=== PATIENT | male | born 1995 | race Caucasian/White ===

== ENCOUNTER 2017-06-13 21:19 | Emergency (ER) | payer OTHER ==
[~2017-06-13] VITALS: Ht 182.9 cm; Wt 85.0 kg
[2017-06-13 21:20] VITALS: BP 133/81; PULSE 79; RESP 16; TEMP 98; O2SAT 99
[2017-06-13] MEDS ORDERED: LISD1CAP PO (23:03)
[2017-06-13] MEDS ORDERED: CEPH-460 PO (23:18)
--- NOTE | 2017-06-13 23:24 | PD ---
HPI Chief Complaint: Facial Pain or Swelling Time Seen by Provider: 23:08 Travel History International Travel<30 days: No Contact w/Intl Traveler<30days: No Traveled to known affect area: No History of Present Illness HPI 21-year-old white male presents to emergency department for evaluation of a facial trauma. The patient states that he was playing flag football and accidentally was struck in the face by another player's head. He had immediate epistaxis. He noticed a small cut on his nose and swelling. He complains of mild pain. He denies syncope. No neck or back pain. No numbness, tingling or weakness. No dental injury. No nausea vomiting. PFSH Past Medical History ADHD: Yes Diminished Hearing: No Immunizations Current: Yes Tetanus Vaccination: < 5 Years Past Surgical History Surgical History: No Previous Surgery Social History Alcohol Use: Yes (ONCE PER WEEK) Tobacco Use: No Substance Use: No Allergies-Medications (Allergen,Severity, Reaction): Coded Allergies: No Known Allergies (Verified Allergy, Unknown, 06/13/17) Reported Meds & Prescriptions Reported Meds & Active Scripts Active Keflex (Cephalexin) 500 Mg Capsule 500 Mg PO Q6H 7 Days Reported Vyvanse (Lisdexamfetamine Dimesylate) 10 Mg Cap 10 Mg PO DAILY PRN Review of Systems Except as stated in HPI: all other systems reviewed are Neg Physical Exam Narrative GENERAL: Well-developed, well-nourished in no acute distress. Nontoxic appearing. HEAD: Patient has mild tenderness and swelling to the bridge of the nose. There is a small 3 mm laceration on the right proximal nasal bridge. EYES: Pupils equal round and reactive. Extraocular motions intact. No scleral icterus. No injection or drainage. ENT: TMs clear without erythema. The external auditory canals clear. Nose: Patient has dry blood in both nares. No septal hematoma. The patient actually has septal deviation to the right. This is to the side of his trauma. I suspect that this is chronic because it is to the opposite side one would expect if it was related to trauma.. Posterior pharynx is pink and moist. No tonsillar edema or exudate. Uvula midline. Airway patent. NECK: Trachea midline.Supple, nontender, moves head freely. No central bony tenderness or spasm. CARDIOVASCULAR: Regular rate and rhythm without murmurs, gallops, or rubs. RESPIRATORY: Clear to auscultation. Breath sounds equal bilaterally. No wheezes , rales, or rhonchi. GASTROINTESTINAL: Abdomen soft, non-tender, nondistended. No hepato-splenomegaly , or palpable masses. No guarding. EXTREMITIES: No clubbing, cyanosis, or edema. No joint tenderness, effusion, or edema noted. BACK: Nontender without deformity or crepitance. No flank tenderness. Data Data Last Documented VS Vital Signs Date Time Temp Pulse Resp B/P (MAP) Pulse Ox O2 Delivery O2 Flow Rate FiO2 06/13/17 21:20 98.0 79 16 133/81 (98) 99 Room Air Orders Orders Cephalexin (Keflex) (06/13/17 23:30) MDM Medical Decision Making Medical Screen Exam Complete: Yes Emergency Medical Condition: Yes Medical Record Reviewed: Yes Differential Diagnosis MDM: High Differential diagnoses: Fracture, sprain, strain, dislocation, contusion, neurovascular injury Narrative Course Patient is given Keflex 500 mg by mouth. The wound is cleansed and dressed. Ice pack applied. I have discussed the clinical findings with the patient. He is aware that his exam is consistent with a fracture. We have decided not to perform x-rays at this point. This is nasal fracture. Diagnosis Primary Impression: Nasal fracture Qualified Codes: S02.2XXB - Fracture of nasal bones, initial encounter for open fracture Patient Instructions: General Instructions Departure Forms: School Release, Please excuse from school until (free text option): No Lacrosse or physical activities for one week. Tests/Procedures Additional Instructions: Rest. Daily wound care with soap, water, Neosporin. Ice packs. No nose blowing. Afrin or Vladimir-Synephrine for the next 3 days. Tylenol or Advil for pain. Keflex. Recheck with the clinic at school in one week. If you're unhappy with the results after the swelling resolves consider following up with a plastic surgeon or a ENT. Return to the ER if any problems. Med/Other Pt SpecificInfo: Prescription(s) given, Wound Care Scripts Cephalexin (Keflex) 500 Mg Capsule 500 MG PO Q6H for Infection for 7 Days, #28 CAP 0 Refills Prov: Paul Welch MD 06/13/17 Disposition: 01 DISCHARGE HOME Condition: Stable [place] PA Jun 13, 2017 23:24
[2017-06-13] MEDS ORDERED: CEPHALEXIN MONOHYDRATE 500 MG CAP PO ONE (23:30)
== END 2017-06-13 23:43 | disposition home or self-care (01) ==
LOC: NEPD 21:19
DX: S02.2XXA Fracture of nasal bones, initial encounter for closed fracture (principal); R04.0 Epistaxis; W50.0XXA Accidental hit or strike by another person, initial encounter; Y93.62 Activity, american flag or touch football; Y92.39 Other specified sports and athletic area as the place of occurrence of the external cause
CPT/HCPCS: 99283